=== PATIENT | male | born 1960 | race Caucasian/White ===

== ENCOUNTER 2021-03-20 19:54 | Emergency (ER) | payer OTHER ==
[~2021-03-20] VITALS: Ht 180 cm; Wt 99.7 kg
[2021-03-20 22:39] VITALS: BP 170/100
[2021-03-20] MEDS ORDERED: CEPH500T PO (22:40)
--- NOTE | 2021-03-20 22:40 | ED Upper Extremity ---
General Stated Complaint: RIGHT THUMB LAC Source: patient Exam Limitations: no limitations (DEYSI PAREDES APRN) History of Present Illness Date Seen by Provider: Mar 20, 2021 Time Seen by Provider: 22:37 Initial Comments To ER with laceration to the palmar side base of the right thumb when he tried to catch himself on a steel grate in a boot wash station while at work at [employer]. Not sure when his last tetanus vaccine was. Onset: just prior to arrival Severity: moderate Pain/Injury Location: right thumb Method of Injury: direct blow (DEYSI PAREDES APRN) Allergies and Home Medications Allergies Coded Allergies: No Known Drug Allergies (Unverified , 03/20/21) Patient Home Medication List Home Medication List Reviewed: Yes (DEYSI PAREDES APRN) Cephalexin (Cephalexin) 500 Mg Tablet, 500 MG PO TID Prescribed by: DEYSI PAREDES on 03/20/21 2240 Review of Systems Constitutional: see HPI EENTM: see HPI Respiratory: no symptoms reported Cardiovascular: no symptoms reported Genitourinary: no symptoms reported Musculoskeletal: see HPI Skin: no symptoms reported Psychiatric/Neurological: No Symptoms Reported (DEYSI PAREDES APRN) Physical Exam Vital Signs Vital Signs - First Documented 03/20/21 22:39 Temp 36.8 Pulse 59 Resp 20 B/P (MAP) 170/100 (123) (EVERT BALBUENA DO) Vital Signs Capillary Refill : (DEYSI PAREDES APRN) Height, Weight, BMI Height: '" Weight: lbs. oz. kg; BMI Method: General Appearance: WD/WN, no apparent distress HEENT: PERRL/EOMI, normal ENT inspection Neck: non-tender, full range of motion Respiratory: no respiratory distress, no accessory muscle use Gastrointestinal: normal bowel sounds, non tender Shoulder: normal inspection, non-tender Elbow/Forearm: normal inspection, non-tender Wrist: Yes normal inspection, Yes non-tender Hand: Right, laceration (There is a 3 cm laceration to the palmar side of the base of the thumb at the MCP joint of the right hand. Depth is down to the subcutaneous tissue. Normal sensation distally. Normal flexion abilities.) (DEYSI PAREDES APRN) Procedures/Interventions Wound Location: Upper Extremities Wound Length (cm): 3 Wound's Depth, Shape: linear, sub Q Wound Explored: clean Irrigated w/ Saline (ccs): 40 Anesthesia: 1% Lidocaine Volume Anesthetic (ccs): 2 Suture: Ethlion Suture Size: 5-0 Number of Sutures: 7 Layer Closure?: 1 Number Deep Layer Sutures: 0 (DEYSI PAREDES APRN) Departure Impression Primary Impression: Thumb laceration Disposition: 01 HOME, SELF-CARE Condition: Stable Departure-Patient Inst. Decision time for Depature: 22:39 (DEYSI PAREDES APRN) Referrals: NO,LOCAL PHYSICIAN (PCP) Primary Care Physician Add. Discharge Instructions: 1. Keep this clean dry and covered for the next several days. Stitches should be removed in about 10 days. Return to the emergency room to have these done at no charge. Take the antibiotics as directed. Scripts Cephalexin (Cephalexin) 500 Mg Tablet 500 MG PO TID, #15 TAB Prov: DEYSI PAREDES APRN 03/20/21 ATTENDING PHYSICIAN NOTE: I WAS PHYSICALLY PRESENT ER PHYSICIAN WHEN THIS PATIENT WAS IN ER, BUT I WAS NOT INVOLVED IN ANY DECISION MAKING OR ANY CARE OF THIS PATIENT. (EVERT BALBUEAN DO) DEYSI PAREDES APRN Mar 20, 2021 22:40 EVERT BALBUENA DO Mar 22, 2021 03:23
[2021-03-20] MEDS ORDERED: TETANUS,DIPTH,PERTUSS P/F (BOOSTRIX) 0.5 ML VIAL IM ONE (22:45)
== END 2021-03-20 23:31 | disposition home or self-care (01) ==
LOC: ER 19:58
DX: S61.011A Laceration without foreign body of right thumb without damage to nail, initial encounter (principal); Z23 Encounter for immunization; W26.8XXA Contact with other sharp object(s), not elsewhere classified, initial encounter
CPT/HCPCS: 12042; 90471; 90715